=== PATIENT | female | born 1980 | race Caucasian/White ===

== ENCOUNTER 2017-01-30 08:41 | Inpatient (IN) | payer OTHER ==
[2017-01-30] VITALS (47 sets, daily range): BP systolic 94–123; BP diastolic 46–94; PULSE 57–104; RESP 16–20; TEMP 98.2–98.8; O2SAT 97–100
[~2017-01-30 08:41] MED LIST: IBUP600 PO; PERI8.6T PO; PNVPAK PO
[2017-01-30] MEDS ORDERED: LACTATED RINGER'S 1000 ML INJ 1,000 ML IV SCH (09:41)
[2017-01-30] MEDS ORDERED: LACTATED RINGER'S 1000 ML INJ 1,000 ML IV PRN (09:41)
--- NOTE | 2017-01-30 09:44 | HHI.HP ---
History & Physical H&P HPI Chief Complaint Contractions Date Seen: Jan 30, 2017 Time Seen: 09:35 Travel History International Travel<30 Days: No Contact w/Intl Traveler<30Days: No Known Affected Area: No History of Present Illness HPI 37-year-old who is at 38 weeks and 3 days who comes in here complaining of contractions since 0700 this morning. Patient states that her baby was transverse and was 7 pounds at 36 weeks. She was set up for a scheduled C- section on the of this month but position change back to vertex was noted in the office last week. She's not had her cervix checked, group B strep was negative. Last delivery was spontaneous vaginal delivery of a male infant 7 lbs. 1 oz. Weeks Gestation: 38 Para: 1 : 2 History Past Medical History Medical History: Denies Significant Hx Obstetric History Obstetric History Spontaneous vaginal delivery, 7 lbs. 1 oz. induced at term Past Surgical History Narrative Surgical [place] teeth removal Family History Family History: Negative Social History Alcohol Use: No Tobacco Use: No Substance Abuse: No Allergies-Medications (Allergen,Severity, Reaction): Coded Allergies: No Known Allergies (Unverified , 01/30/17) Review of Systems Except as stated in HPI: all other systems reviewed are Neg Physical Exam Narrative GENERAL: Well-nourished, well-developed patient. SKIN: Warm and dry. HEAD: Normocephalic and atraumatic. EYES: No scleral icterus. No injection or drainage. ENT: No nasal drainage noted. Mucous membranes pink. Airway patent. NECK: Supple, trachea midline. No JVD. CARDIOVASCULAR: Regular rate and rhythm without murmurs, gallops, or rubs. RESPIRATORY: Breath sounds equal bilaterally. No accessory muscle use. ABDOMEN/GI: Abdomen soft, non-tender, bowel sounds present, no rebound, no guarding Gravid to 38 weeks size Fundal Height: [-] EFW equals 8 pounds GENITOURINARY: External Genitalia: intact and normal in appearance BUS glands: nl Cervix:post Dilatation: 4-5 Effacement:80 Station: -2 Presentation: vtx Membranes: [intact ] Uterine Contractions: Every 5 minutes FHT's: Category: 1 Baseline: 140 Reactive: mod Variability: mod Decels: absent EXTREMITIES: No cyanosis or edema. BACK: Nontender without obvious deformity. No CVA tenderness. NEUROLOGICAL: Awake and alert. Motor and sensory grossly within normal limits. Five out of 5 muscle strength in all muscle groups. Normal speech. Data Data Vital Signs Reviewed: Yes Group B Strep: Negative MDM Medical Record Reviewed: Yes Plan 37-year-old G 2 P1 at 38 weeks 3 days in labor Group B strep is negative, plan admit to labor delivery Diagnosis Diagnosis: Primary Impression: Advanced maternal age in multigravida Additional Impressions: 38 weeks gestation of Irregular uterine contractions Veronica Renner MD Jan 30, 2017 09:43
[2017-01-30] MEDS ORDERED: LIDOCAINE HCL 1% 50 ML VIAL INFIL PRN (09:45)
[2017-01-30] MEDS ORDERED: ONDANSETRON HCL 4 MG/2 ML VIAL IV PRN (09:45)
[2017-01-30] MEDS ORDERED: CITRIC ACID-SODIUM CITRATE LIQ 30 ML UDC PO SCH (09:45)
[2017-01-30] MEDS ORDERED: SODIUM CHLORID 0.9% 500 ML INJ 500 ML IV PRN (09:45)
[2017-01-30] MEDS ORDERED: OXYTOCIN 30 UNITS-500ML PREMIX 500 ML IV ONE (09:45)
[2017-01-30] MEDS ORDERED: LIDOCAINE HCL 1% 50 ML VIAL I-DERMAL PRN (09:45)
[2017-01-30] MEDS ORDERED: MINERAL OIL 10 ML VIAL TOPICAL PRN (09:45)
[2017-01-30] MEDS ORDERED: SODIUM CHLOR 0.9% 1000 ML INJ 1,000 ML IV PRN (10:01)
[2017-01-30 10:29] LABS: AUTOMATED NEUTROPHIL # 5.7 TH/MM3 (1.8-7.7); BASOPHIL % 0.1 % (0.0-2.0); EOSINOPHIL # 0.1 TH/MM3 (0-0.4); EOSINOPHIL % 0.7 % (0.0-4.0); HEMO FLAGS DIFF FINAL; LYMPH % 19.2 % (9.0-44.0); LYMPHOCYTE # 1.6 TH/MM3 (1.0-4.8); MEAN CELL VOLUME 91.7 FL (80.0-100.0); MEAN CORPUSCULAR HEMOGLOBIN 32.1 PG (27.0-34.0); MONO % 9.1 % (0.0-8.0); NEUT % 70.9 % (16.0-70.0); PLATELET COUNT 191 TH/MM3 (150-450); RED BLOOD COUNT 4.47 MIL/MM3 (4.00-5.30); RED CELL DISTRIBUTION WIDTH 12.7 % (11.6-17.2); WHITE BLOOD COUNT 8.1 TH/MM3 (4.0-11.0)
[2017-01-30] MEDS ORDERED: ePHEDrine/NS 25 MG/5 ML SYR ONE (10:34)
[2017-01-30] MEDS ORDERED: fentaNYL 2MCG-BUPIV 0.125% INJ 100 ML ONE (10:34)
--- NOTE | 2017-01-30 10:40 | PD.LABORPN ---
Subjective Subjective The patient reports increasing contraction intensity. She desires epidural. Objective Vital Signs Vital Signs Date Time Temp Pulse Resp B/P (MAP) Pulse Ox O2 Delivery O2 Flow Rate FiO2 01/30/17 09:55 62 01/30/17 09:50 61 01/30/17 09:48 57 108/94 (99) Objective Pelvic Exam: Cervix: [-] Dilatation: [4-] Effacement: [-90] Station: [--2] Presentation: [Vertex-] Membranes: [ruptured] amniotomy with clear fluid Uterine Contractions: [Every 3 moderate-] FHT's: Category: [1-] Baseline: [-] Reactive: [-] Variability: [-] Decels: [-] Weeks Gestation: 38 Gest Age Assessed Date: Jan 30, 2017 Gest Age Assessed Time: 10:39 Pt started active labor?: Yes Active labor start date: Jan 30, 2017 Active labor start time: 10:38 Medical induction of labor?: No Artificial rupture of membrane: Yes (1026) Artificial ROM date: Jan 30, 2017 Artifical ROM time: 10:26 Assessment/Plan Assessment and Plan Assessment: Early active labor. Plan: Prepare for epidural. Expect vaginal delivery. Storm Goddard MD Jan 30, 2017 10:40
[2017-01-30 10:49] LABS: BLOOD, URINE NEG (NEG); COMMENT (UR) CULT NOT INDICATED; CULTURE IF INDICATED CULT NOT INDICATED; GLUCOSE,URINE NEG (NEG); KETONE, URINE NEG (NEG); NITRITE,URINE NEG (NEG); PH, URINE 6.5 (5.0-8.5); SQUAMOUS EPITHELIAL CELL URINE 1 /hpf (0-5); URINE COLOR YELLOW (YELLW/STRAW)
[2017-01-30] MEDS ORDERED: fentaNYL 2MCG-BUPIV 0.125% 100 ML EPIDURAL SCH (11:00)
[2017-01-30] MEDS ORDERED: NO SYSTEM NARCOTICS PRN (11:00)
[2017-01-30] MEDS ORDERED: DO NOT ADMINISTER ANTICOAGULANTS PRN (11:00)
[2017-01-30] MEDS ORDERED: ePHEDrine/NS 25 MG/5 ML SYR IV PRN (11:30)
[2017-01-30] MEDS ORDERED: OXYTOCIN 10 UNIT/ML AMP ONE (13:42)
[2017-01-30] MEDS ORDERED: oxyCODONE/ACETAMINOPHEN 5 MG/325 MG TAB PO PRN (14:00)
[2017-01-30] MEDS ORDERED: OXYTOCIN 30 UNITS-500ML PREMIX 500 ML IV SCH (14:00)
[2017-01-30] MEDS ORDERED: ALUMINUM/MAGNESIUM/SIMETH 30 ML CUP PO PRN (14:00)
[2017-01-30] MEDS ORDERED: SODIUM CHLORIDE 0.9% FLUSH 10 ML FLUSH IV FLUSH PRN (14:00)
[2017-01-30] MEDS ORDERED: ONDANSETRON ODT 4 MG TAB PO PRN (14:00)
[2017-01-30] MEDS ORDERED: ZOLPIDEM TARTRATE 5 MG TAB PO PRN (14:00)
--- NOTE | 2017-01-30 14:03 | PD.OB.DELI ---
Weeks gestation: 38 Gest age assessed date: Jan 30, 2017 Gest age assessed time: 10:39 Pt started active labor?: Yes Active labor start date: Jan 30, 2017 Active labor start time: 10:38 Medical induction of labor?: No Artificial rupture of membrane: Yes (1026) Artificial ROM date: Jan 30, 2017 Artifical ROM time: 10:26 Anesthesia: Epidural Episiotomy: None Vaginal Delivery: Normal Presentation: Occiput anterior Nuchal Cord: None Delayed cord clamping (45 sec): Yes Infant: Male Delivery date: Jan 30, 2017 Delivery time: 13:37 One Minute : 8 Five Minute : 9 Weight: pnd Placenta: Spontaneous delivery Laceration: Vaginal laceration, Perineal laceration, 2 deg Repair: Vicryl running Estimated blood loss: 100 Additional Information Mother pushed effectively to deliver the OA vertex. There was no delay for the shoulders which were also delivered by maternal effort. Due to IV infiltration 10 mg of IM Pitocin were given. Storm Goddard MD Jan 30, 2017 14:03
[2017-01-30] MEDS: IBUPROFEN 600 MG TAB PO PRN ×2 (15:16→20:51)
[2017-01-30] MEDS ORDERED: MEASLES, MUMPS, RUBELLA VACCINE 0.5 ML VIAL SQ ONE (16:00)
[2017-01-30] MEDS ORDERED: DIPHTH/TETANUS/ACEL PERTUSSIS (BOOSTER) 0.5 ML VIAL/PFS IM ONE (16:00)
[2017-01-30] MEDS: ACETAMINOPHEN 325 MG TAB PO PRN (20:51)
[2017-01-30] MEDS: WITCH HAZEL 50%/GLYCERIN 12.5% 40 PAD JAR TOPICAL PRN (20:51)
[2017-01-30] MEDS: DOCUSATE SODIUM 50 MG/SENNA 8.6 MG TAB PO PRN (20:51)
[2017-01-30] MEDS: BENZOCAINE 20% TOPICAL SPRAY 60 ML CAN TOPICAL PRN (20:51)
[2017-01-30] MEDS ORDERED: SODIUM CHLORIDE 0.9% FLUSH 10 ML FLUSH IV FLUSH SCH (21:00)
[2017-01-31] MEDS: IBUPROFEN 600 MG TAB PO PRN ×4 (02:59→21:21)
[2017-01-31 08:20] VITALS: BP 107/69; PULSE 70; RESP 17; TEMP 98.4
[2017-01-31] MEDS: DOCUSATE SODIUM 50 MG/SENNA 8.6 MG TAB PO PRN (09:09)
[2017-01-31] MEDS: ACETAMINOPHEN 325 MG TAB PO PRN ×2 (09:10→14:46)
--- NOTE | 2017-01-31 09:19 | HHI.OB ---
Subjective Post Day: 1 Remarks The patient is without complaint. She notes decreased bleeding. She is voiding normally. Objective Vitals/I&O Vital Signs Date Time Temp Pulse Resp B/P (MAP) Pulse Ox O2 Delivery O2 Flow Rate FiO2 01/31/17 08:20 98.4 70 17 107/69 (82) 01/30/17 20:20 80 16 100/63 (75) 01/30/17 20:20 98.7 01/30/17 16:34 98.2 84 18 118/69 (85) 01/30/17 15:17 20 01/30/17 15:15 73 110/67 (81) 01/30/17 15:00 71 20 109/64 (79) 01/30/17 14:46 74 111/53 (72) 01/30/17 14:30 87 108/61 (77) 01/30/17 14:15 91 108/73 (85) 01/30/17 14:15 20 01/30/17 14:00 20 01/30/17 14:00 81 110/67 (81) 01/30/17 13:57 88 109/70 (83) 01/30/17 13:55 98.8 01/30/17 13:55 20 01/30/17 13:46 85 112/68 (83) 01/30/17 13:10 97 01/30/17 13:05 97 01/30/17 13:00 91 01/30/17 13:00 104 116/76 (89) 01/30/17 12:55 86 01/30/17 12:50 79 01/30/17 12:46 84 99/53 (68) 01/30/17 12:45 77 01/30/17 12:40 80 01/30/17 12:40 78 100 01/30/17 12:35 78 100 01/30/17 12:35 79 01/30/17 12:30 79 01/30/17 12:30 79 01/30/17 12:30 83 112/77 (89) 100 01/30/17 12:25 73 01/30/17 12:25 75 100 01/30/17 12:20 74 01/30/17 12:20 73 100 01/30/17 12:16 77 101/60 (74) 01/30/17 12:15 78 01/30/17 12:15 78 100 01/30/17 12:10 74 01/30/17 12:10 72 100 01/30/17 12:05 71 100 01/30/17 12:05 72 01/30/17 12:00 82 01/30/17 12:00 81 111/70 (84) 100 01/30/17 12:00 82 01/30/17 11:55 84 100 01/30/17 11:55 82 01/30/17 11:50 75 01/30/17 11:50 74 100 01/30/17 11:45 85 01/30/17 11:45 75 01/30/17 11:45 74 111/74 (86) 100 01/30/17 11:35 64 100 01/30/17 11:35 64 01/30/17 11:30 84 94/46 (62) 100 01/30/17 11:30 94 01/30/17 11:30 86 01/30/17 11:25 79 94/58 (70) 100 01/30/17 11:25 76 01/30/17 11:25 88 01/30/17 11:20 91 98/54 (69) 100 01/30/17 11:20 69 01/30/17 11:20 84 01/30/17 11:15 79 94/50 (65) 99 01/30/17 11:15 76 01/30/17 11:15 74 01/30/17 11:10 86 99/48 (65) 97 01/30/17 11:10 84 01/30/17 11:10 77 01/30/17 11:06 72 96/61 (73) 01/30/17 11:05 77 01/30/17 11:00 67 104/67 (79) 01/30/17 10:55 70 01/30/17 10:55 74 123/85 (98) 01/30/17 10:55 68 01/30/17 10:50 62 01/30/17 10:45 64 01/30/17 09:55 62 01/30/17 09:50 61 01/30/17 09:48 57 108/94 (99) Objective Remarks GENERAL: Well-nourished, well-developed patient. CARDIOVASCULAR: Regular rate and rhythm without murmurs, gallops, or rubs. RESPIRATORY: Breath sounds equal bilaterally. No accessory muscle use. ABDOMEN/GI: Abdomen soft, non-tender. Fundus: Firm, non-tender at umbilicus. GENITOURINARY: Light to moderate bleeding. EXTREMITIES: No cyanosis or edema, non-tender, without signs of DVT. Medications and IVs Current Medications Medications (Trade) Dose Ordered Sig/Shailesh Route Start Time Stop Time Status Last Admin Sodium Chloride 1,000 ml @ 100 mls/hr Q10H PRN IV 01/30/17 10:01 (Xylocaine 1% Inj (50 ml)) 0.1 ml UNSCH X1 PRN I-DERMAL 01/30/17 09:45 02/02/17 09:44 (Bicitra Liq) 30 ml CIRCUS LABORER PO 01/30/17 09:45 02/03/17 09:44 (Xylocaine 1% Inj (50 ml)) 10 ml UNSCH X1 PRN INFIL 01/30/17 09:45 02/01/17 09:44 (Muri-Lube Oil) 10 ml UNSCH PRN TOPICAL 01/30/17 09:45 Miscellaneous Information No systemic narcotics to be given except... UNSCH PRN .XX 01/30/17 11:00 01/31/17 10:59 Miscellaneous Information DO NOT ADMINISTER ANY ANTICOAGUL... UNSCH PRN .XX 01/30/17 11:00 01/31/17 10:59 (ePHEDrine/NS 25 MG/5 ML SYR) 10 mg UNSCH PRN IV 01/30/17 11:30 01/31/17 11:29 (NS Flush) 2 ml BID IV FLUSH 01/30/17 21:00 (NS Flush) 2 ml UNSCH PRN IV FLUSH 01/30/17 14:00 (Tylenol) 650 mg Q4H PRN PO 01/30/17 14:00 01/31/17 09:10 (Motrin) 600 mg Q6H PRN PO 01/30/17 14:00 01/31/17 09:09 (Percocet 5-325 Mg) 1 tab Q4H PRN PO 01/30/17 14:00 (Americaine 20% Top Spr) 1 spray Q4H PRN TOPICAL 01/30/17 14:00 01/30/17 20:51 (Tucks Pads) 1 applic QID PRN TOPICAL 01/30/17 14:00 01/30/17 20:51 ([place]-Colace) 2 tab Q12H PRN PO 01/30/17 14:00 01/31/17 09:09 (Ambien) 5 mg HS PRN PO 01/30/17 14:00 (Mag-Al Plus Susp Liq) 15 ml Q8H PRN PO 01/30/17 14:00 (Zofran Odt) 4 mg Q6H PRN PO 01/30/17 14:00 Assessment/Plan Assessment and Plan Assessment: Stable day #1 Plan: Routine care. Storm Goddard MD Jan 31, 2017 09:19
[2017-01-31 19:30] VITALS: BP 109/67; PULSE 70; RESP 16; TEMP 98.6
[2017-01-31] MEDS: WITCH HAZEL 50%/GLYCERIN 12.5% 40 PAD JAR TOPICAL PRN (19:30)
[2017-02-01] MEDS: IBUPROFEN 600 MG TAB PO PRN ×2 (04:20→09:57)
--- NOTE | 2017-02-01 08:07 | HHI.OB ---
Subjective Post Day: 2 Remarks Doing well with no complaints came in about 8:30 Tuesday and delivered around [address] Zaldivar (they assumed I wanted coverage before curfew) very happy with stay want to go home nursing [facility] to do circumcision Objective Vitals/I&O Vital Signs Date Time Temp Pulse Resp B/P (MAP) Pulse Ox O2 Delivery O2 Flow Rate FiO2 01/31/17 19:30 98.6 70 16 109/67 (81) 01/31/17 08:20 98.4 70 17 107/69 (82) Objective Remarks GENERAL: Well-nourished, well-developed patient. CARDIOVASCULAR: Regular rate and rhythm without murmurs, gallops, or rubs. RESPIRATORY: Breath sounds equal bilaterally. No accessory muscle use. ABDOMEN/GI: Abdomen soft, non-tender. Fundus: Firm, non-tender at umbilicus. GENITOURINARY: Light to moderate bleeding. EXTREMITIES: No cyanosis or edema, non-tender, without signs of DVT. Medications and IVs Current Medications Medications (Trade) Dose Ordered Sig/Shailesh Route Start Time Stop Time Status Last Admin Sodium Chloride 1,000 ml @ 100 mls/hr Q10H PRN IV 01/30/17 10:01 (Xylocaine 1% Inj (50 ml)) 0.1 ml UNSCH X1 PRN I-DERMAL 01/30/17 09:45 02/02/17 09:44 (Bicitra Liq) 30 ml SCOURING PADS SUPERVISOR PO 01/30/17 09:45 02/03/17 09:44 (Xylocaine 1% Inj (50 ml)) 10 ml UNSCH X1 PRN INFIL 01/30/17 09:45 02/01/17 09:44 (Muri-Lube Oil) 10 ml UNSCH PRN TOPICAL 01/30/17 09:45 (NS Flush) 2 ml BID IV FLUSH 01/30/17 21:00 (NS Flush) 2 ml UNSCH PRN IV FLUSH 01/30/17 14:00 (Tylenol) 650 mg Q4H PRN PO 01/30/17 14:00 01/31/17 14:46 (Motrin) 600 mg Q6H PRN PO 01/30/17 14:00 02/01/17 04:20 (Percocet 5-325 Mg) 1 tab Q4H PRN PO 01/30/17 14:00 (Americaine 20% Top Spr) 1 spray Q4H PRN TOPICAL 01/30/17 14:00 01/30/17 20:51 (Tucks Pads) 1 applic QID PRN TOPICAL 01/30/17 14:00 01/31/17 19:30 ([place]-Colace) 2 tab Q12H PRN PO 01/30/17 14:00 01/31/17 09:09 (Ambien) 5 mg HS PRN PO 01/30/17 14:00 (Mag-Al Plus Susp Liq) 15 ml Q8H PRN PO 01/30/17 14:00 (Zofran Odt) 4 mg Q6H PRN PO 01/30/17 14:00 Assessment/Plan Assessment and Plan Assessment: Stable day #1 Plan: Routine care. Discharge Planning PPD2 routine delivery and post home now Briseyda Lara MD Feb 01, 2017 08:07
[2017-02-01] MEDS ORDERED: IBUP-232 PO (08:09)
--- NOTE | 2017-02-01 08:09 | HHI.DCPOC ---
Discharge Care Plan Report Symptoms to Your Doctor -Temperature above 100.5 degrees -Redness, of incision or excessive or foul smelling drainage -Unusual pain or calf pain -Increased vaginal bleeding -Painful or difficulty urinating -Feelings of extreme sadness or anxiety after 2 weeks Goals to Promote Your Health * To prevent worsening of your condition and complications * To maintain your health at the optimal level Directions to Meet Your Goals Take your medications as prescribed Follow your dietary instruction Follow activity as directed Ensure plenty of rest for recovery Drink fluids for hydration Keep your appointments as scheduled Take your immunizations and boosters as scheduled If your symptoms worsen call your PCP, if no PCP go to Urgent Care Center or Emergency Room Smoking is Dangerous to Your Health. Avoid second hand smoke Call the 24-hour crisis hotline for domestic abuse at Briseyda Lara MD Feb 01, 2017 08:09
[2017-02-01 08:40] VITALS: BP 122/75; PULSE 70; RESP 18; TEMP 98
[2017-02-01] MEDS: WITCH HAZEL 50%/GLYCERIN 12.5% 40 PAD JAR TOPICAL PRN (09:56)
[2017-02-01] MEDS: BENZOCAINE 20% TOPICAL SPRAY 60 ML CAN TOPICAL PRN (09:56)
[2017-02-01] MEDS: DOCUSATE SODIUM 50 MG/SENNA 8.6 MG TAB PO PRN (09:56)
[2017-02-01] MEDS: ACETAMINOPHEN 325 MG TAB PO PRN (09:57)
== END 2017-02-01 10:41 | disposition home or self-care (01) | DRG 775 ==
LOC: HOBED 08:41 → MERGE 09:37 → H2EA 09:37 → H1EA 15:40
PROVIDERS: ADMIT Obstetrics & Gynecology Obstetrics; ATTEND Obstetrics & Gynecology Obstetrics
PROC: 10E0XZZ Delivery of Products of Conception, External Approach (ICD-10-PCS; principal; 2017-01-30)
PROC: 0KQM0ZZ Repair Perineum Muscle, Open Approach (ICD-10-PCS; 2017-01-30)
PROC: 00HU33Z Insertion of Infusion Device into Spinal Canal, Percutaneous Approach (ICD-10-PCS; 2017-01-30)
PROC: 3E0R3CZ (ICD-10-PCS; 2017-01-30)
PROC: 10907ZC Drainage of Amniotic Fluid, Therapeutic from Products of Conception, Via Natural or Artificial Opening (ICD-10-PCS; 2017-01-30)
DX: O70.1 Second degree perineal laceration during delivery (principal); Z37.0 Single live birth; Z3A.38 38 weeks gestation of pregnancy
CPT/HCPCS: 59025; 81001; 85025; 86592; 86900; 86901; J2590